=== PATIENT | female | born 1980 | race Caucasian/White ===

== ENCOUNTER 2024-03-10 12:22 | Emergency (ER) | payer BC, SELFPAY ==
[2024-03-10 12:28] VITALS: BP 116/79; PULSE 70; RESP 16; TEMP 37; O2SAT 100
--- NOTE | 2024-03-10 13:04 | ED.EXTPRO ---
HPI - Extremity Problem General Chief complaint: Extremity Problem,Nontraumatic Stated complaint: lt elbow pain Source: patient Mode of arrival: ambulatory Limitations: no limitations History of Present Illness HPI Narrative: 43-year-old female presented for complaint of left elbow pain and swelling. Onset this morning. She played softball last night denies known injury. Patient is right-hand dominant. Has not taken anything for pain. Denies decreased range of motion, numbness, tingling, weakness of the extremity. Related Data Home Medications Medication Instructions Recorded Confirmed progesterone micronized 100 mg mg 03/10/24 capsule testosterone 03/10/24 Allergies Allergy/AdvReac Type Severity Reaction Status Date / Time No Known Allergies Allergy Verified 03/10/24 12:56 Review of Systems Review of Systems: CONSTITUTIONAL: Denies body aches, fever, chills CARDIOVASCULAR: Denies chest pain, palpitations, or edema. RESPIRATORY: Denies cough or dyspnea. SKIN: Denies rash, itching, or wounds. MUSCULOSKELETAL:Reports left elbow pain NEUROLOGIC: Denies headache, numbness, tingling, or weakness. 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 Please see nursing chart for further information. There is no relevant family history pertinent to the presenting complaint Exam Narrative: GENERAL: Well-appearing, well-nourished, and in no acute distress. CHEST: Speaks in full sentences. No respiratory distress. HEART: Regular rate and rhythm. Normal and equal peripheral pulses. EXTREMITIES: Left posterior elbow erythematous, mildly swollen, warm, tender c/w bursitis. LUE has normal strength and sensation, normal range of motion with flexion/extension of elbow, but endorses pain with movement. No ecchymosis, No open wounds, or obvious deformity; alignment normal, pulse palpable and equal bilaterally, skin warm, dry, pink. Capillary refill less than 3 seconds. SKIN: Warm, dry, no rash. NEURO: Alert and oriented x3. PSYCH: Normal mood and affect Course Course Emergency Course: Patient is aware of diagnosis, understands and agrees to treatment plan. Anticipatory guidance given. Patient agrees to follow-up as directed and is aware of reasons to seek care at the emergency department. Portions of this record may have been created with voice recognition software Level of Care: Express Care Visit Vital Signs Vital signs: Vital Signs Temperature 98.6 F 03/10/24 12:28 Pulse Rate 70 03/10/24 12:28 Respiratory Rate 16 03/10/24 12:28 Blood Pressure 116/79 03/10/24 12:28 Pulse Oximetry 100 03/10/24 12:28 Oxygen Delivery Room Air 03/10/24 12:28 Temperature 98.6 F 03/10/24 12:28 Pulse Rate 70 03/10/24 12:28 Respiratory Rate 16 03/10/24 12:28 Blood Pressure 116/79 03/10/24 12:28 Pulse Oximetry 100 03/10/24 12:28 Oxygen Delivery Room Air 03/10/24 12:28 Reviewed MDM - Extremity (Nontraumatic) MDM Narrative Medical decision making narrative: Discussed physical exam findings consistent with elbow bursitis. Jerome wrap applied.. Advised supportive measures and sig
== END 2024-03-10 13:18 | disposition home or self-care (01) ==
PROVIDERS: Emergency Provider Nurse Practitioner Family
DX: M70.32 Other bursitis of elbow, left elbow (principal)
CPT/HCPCS: 99213; G0463

== ENCOUNTER 2024-08-31 16:35 | Emergency (ER) | payer BC, SELFPAY ==
[2024-08-31 16:45] VITALS: BP 109/83; PULSE 78; RESP 18; TEMP 36.9; O2SAT 100
--- NOTE | 2024-08-31 16:53 | ED.URI ---
HPI - URI/Sore Throat General Chief Complaint: Upper Respiratory Infection Stated Complaint: cold symptoms Time Seen by Provider: 08/31/24 17:00 Source: patient, RN notes reviewed and old records reviewed Mode of arrival: ambulatory Limitations: no limitations History of Present Illness HPI Narrative: patient presents with complaints of sinus pain and congestion for 3 weeks. She denies any fever, chills, sweats. She does report lack of energy and right frontal headache that is worsening. She also reports postnasal drip causing a sore throat, occasional cough. She denies any injury or trauma. She voices no other concerns or complaints at this time. Related Data Home Medications ?Medication ?Instructions ?Recorded ?Confirmed ?Last Taken ?Type progesterone micronized 100 mg mg 03/10/24 Unknown History capsule testosterone 03/10/24 Unknown History Allergies Allergy/AdvReac Type Severity Reaction Status Date / Time No Known Allergies Allergy Verified 08/31/24 16:49 Review of Systems Review of Systems: All systems reviewed & are unremarkable except as noted in HPI and below Constitutional: Constitutional: Reports no additional constitutional complaints ENT: Reports system reviewed and no additional complaints, except as documented, Reports facial pain, Reports nasal congestion, Reports sinus pain, Reports sinus pressure and Reports sore throat Cardiovascular: Cardiovascular: Reports no additional cardiovascular complaints Respiratory: Respiratory: Reports no additional respiratory complaints and Reports cough Gastrointestinal: Gastrointestinal: Reports no additional gastrointestinal complaints [facility] Surgical History Surgical History History of hysterectomy Social History Social History Smoking status: Never smoker Tobacco type: e-cigarettes/vaping Alcohol intake: current Alcohol use details: beer bi-weekly Substance use: never Substance use type: does not use Living arrangements: with family Occupation/Education: occupation 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 There is no relevant family history pertinent to the patient complaint. Exam Const: General: cooperative, no acute distress, alert and awake Orientation/consciousness: oriented to person, oriented to place and oriented to time HENMT: Head: normal to inspection Ears: TM abnormal with fluid behind the TM bilateral Face and sinus: sinus tenderness Mouth: Yes moist mucous membranes Throat: posterior oropharynx abnormal erythema Resp: Effort & Inspection: normal respiratory effort and able to speak in complete sentences Auscultation: clear to auscultation bilaterally, no crackles, no rales, no rhonchi and no wheezes Cardio: Palpation: normal PMI Rate: regular rate Rhythm: regular rhythm Heart sounds: S1 normal heart sound present and S2 normal heart sound present Neuro: General: oriented to person, oriented to place and oriented to time Cranial nerves: Yes CN's II-XII intact bilaterally Psych: Appearance: grossly normal Thought process: Normal thought process present Insight: Good insight present (Psych) Judgement: Good judgement present (Psych) Course Course Level of Care: Express Care Visit Vital Signs Vital signs: Vital Signs Temperature 98.4 F 08/31/24 16:45 Pulse Rate 78 08/31/24 16:45 Respiratory Rate 18 08/31/24 16:45 Blood Pressure 109/83 08/31/24 16:45 Pulse Oximetry 100 08/31/24 16:45 Oxygen Delivery Room Air 08/31/24 16:45 Temperature 98.4 F 08/31/24 16:45 Pulse Rate 78 08/31/24 16:45 Respiratory Rate 18 08/31/24 16:45 Blood Pressure 109/83 08/31/24 16:45 Pulse Oximetry 100 08/31/24 16:45 Oxygen Delivery Room Air 08/31/24 16:45 Reviewed MDM - URI/Sore Throat MDM Narrative Medical decision making narrative: History and exam consistent with sinusitis. Treat with p.o. antibiotics. Patient is stable for discharge home, nontoxic appearing. Discharge instructions reviewed with patient, as well as provided in writing per nursing staff. The instructions also include specific and strict return/GO TO THE ER as well as f/u information. All questions have been answered, and the patient deny any further questions with discharge and discharge plan. Some parts of this dictation were generated by voice recognition software and may contain typographical and/or grammatical inaccuracies. Differential Diagnosis Differential diagnosis: Likely upper respiratory infection, otitis media, sinusitis, viral infection and pharyngitis Medical Records Attestation: I reviewed the patient's medical records. Discharge Plan Discharge Clinical Impression: Sinusitis Qualifiers: Sinusitis location: frontal Chronicity: acute Recurrence: not specified as recurrent Qualified Code(s): J01.10 - Acute frontal sinusitis, unspecified Patient Disposition: Home, Self-Care Condition: Stable Instructions: Sinusitis (ED) Additional Instructions: take medications as prescribed. Follow with primary care provider. Emergency department for new or worse symptoms Patient Language: Occitan Prescriptions: New amoxicillin-pot clavulanate 875-125 mg tablet 1 tablet PO Q12H Qty: 20 0RF prednisone 50 mg tablet 50 mg PO DAILY Qty: 5 0RF No Action progesterone micronized 100 mg capsule testosterone Follow-up/Referrals: UNKNOWN,DOCTOR [Primary Care Provider] - Time of Disposition: 17:15
== END 2024-08-31 17:17 | disposition home or self-care (01) ==
PROVIDERS: Emergency Provider Nurse Practitioner Family
DX: J01.10 Acute frontal sinusitis, unspecified (principal)
CPT/HCPCS: 99213; G0463

== ENCOUNTER 2025-03-06 08:10 | Outpatient (CLI) | payer BC, SELFPAY ==
--- NOTE | ~2025-03-06 | CT_ITS ---
CT sinus wo con Ordering provider: Lilliana Martinez APRN History: . R51.9 - Headache, unspecified . Comparison: None. Technique: Thin slice Scans CT of the paranasal sinuses was performed with coronal and sagittal refor matted images. No IV contrast. . Automated exposure control and iterative reconstruction technique w ere employed. The dose-length product was 290.62 mGy-cm. Findings: NASAL SEPTUM: Mild left deviation is seen posteriorly. OSTEOMEATAL UNITS: Bilaterally patent. NASAL TURBINATES AND NASOPHARYNX: Normal. PARANASAL SINUSES: Bilateral ethmoid sinus disease. Well aerated. VISUALIZED MASTOIDS: Normal as visualized. BONES: Normal. SUPERFICIAL SOFT TISSUES/VISUALIZED BRAIN PARENCHYMA: Normal. IMPRESSION: Bilateral ethmoid sinus disease. Mild left nasal septal deviation seen posteriorly. Reviewed, dictated and finalized at location A.
== END 2025-03-06 08:11 | disposition home or self-care (01) ==
LOC: MICIMG 08:10
PROVIDERS: PCP Nurse Practitioner Family; Visit Provider Nurse Practitioner Family
DX: R51.9 Headache, unspecified (principal)
CPT/HCPCS: 70486